=== PATIENT | female | born 1995 | race Caucasian/White ===

== ENCOUNTER 2023-12-13 23:33 | Emergency (ER) | payer BC ==
[~2023-12-13] VITALS: Ht 162.6 cm; Wt 64.0 kg
[2023-12-13 23:37] VITALS: TEMP 97.6; O2SAT 98
[2023-12-14] MEDS ORDERED: ONDANSETRON HCL 4MG/2ML INJ IV STA (00:18)
[2023-12-14] MEDS ORDERED: SODIUM CHLORIDE 0.9% 1,000 ML IV ONE (00:30)
[2023-12-14 01:00] LABS: BASOPHILS % 0.9 % (0.0-2.0); EOSINOPHILS % 0.5 % (0.0-5.0); HEMOGLOBIN. 13.8 g/dL (12.0-16.0); LYMPHOCYTES % 12.9 % (20.0-50.0); MEAN CORPUSCULAR HEMOGLOBIN 32.3 pg (28.0-32.0); MEAN CORPUSCULAR HGB CONC 33.5 g/dL (31.0-37.0); MEAN CORPUSCULAR VOLUME 96.4 fL (81.0-99.0); MEAN PLATELET VOLUME 9.1 fl (7.4-10.4); MONOCYTES % 5.7 % (2.0-8.0); PLATELET 247 x1000/uL (130-400); RED BLOOD CELL COUNT 4.26 mill/uL (4.2-5.4); RED CELL DISTRIBUTION WIDTH 12.9 % (11.6-14.6)
[2023-12-14 01:07] LABS: CHLORIDE 104 mEq/L (98-107); POTASSIUM 3.3 mEq/L (3.5-5.1); SODIUM 138 mEq/L (136-145)
[2023-12-14 01:08] LABS: CARBON DIOXIDE 22 mEq/L (21-32)
[2023-12-14 01:13] LABS: CREATININE 0.8 mg/dL (0.6-1.0); GLUCOSE 90 mg/dL (70-105); UREA NITROGEN BLOOD 13 mg/dL (9-23)
[2023-12-14 01:14] LABS: ETHANOL BLOOD 229 mg/dL (<10)
[2023-12-14 01:21] LABS: HCG SCREEN NEGATIVE
[2023-12-14] MEDS ORDERED: ONDA4TAB50 MT (01:22)
[2023-12-14 01:47] VITALS: BP 126/66; PULSE 84; RESP 17; O2SAT 99
[2023-12-14] MEDS: ONDANSETRON 4MG ODT PO ONE (01:47)
== END 2023-12-14 01:49 | disposition home or self-care (01) ==
LOC: ER 23:33
DX: F10.129 Alcohol abuse with intoxication, unspecified (principal); R11.2 Nausea with vomiting, unspecified; Y90.7 Blood alcohol level of 200-239 mg/100 ml
CPT/HCPCS: 99283; 80048; 80320; 84703; 83690; 85025; 36415; J7030; G0480